=== PATIENT | female | born 1950 | race Caucasian/White ===

== ENCOUNTER 2020-08-08 14:08 | Inpatient (IN) | payer MEDICAID ==
[~2020-08-08] VITALS: Ht 162.6 cm; Wt 94.8 kg
[2020-08-08 19:54] LABS: BASOPHILS % 0.5 % (0.0-2.0); EOSINOPHILS % 0.8 % (0.0-5.0); HEMATOCRIT. 32.8 % (36.0-48.0); HEMOGLOBIN. 11.1 g/dL (12.0-16.0); LYMPHOCYTES % 25.1 % (20.0-50.0); MEAN CORPUSCULAR HEMOGLOBIN 27.8 pg (28.0-32.0); MEAN CORPUSCULAR VOLUME 82.2 fL (81.0-99.0); MEAN PLATELET VOLUME 7.9 fl (7.4-10.4); MONOCYTES % 7.2 % (2.0-8.0); NEUTROPHILS % 66.4 % (40.0-76.0); PLATELET 293 x1000/uL (130-400); RED BLOOD CELL COUNT 3.99 mill/uL (4.2-5.4); RED CELL DISTRIBUTION WIDTH 15.6 % (11.6-14.6)
[2020-08-08 20:00] LABS: CHLORIDE 98 mEq/L (98-107)
[2020-08-08 20:10] LABS: T4 FREE 0.68 ng/dL (0.76-1.46)
[2020-08-08] MEDS ORDERED: CALCIUM GLUCONATE 1,000 MG in DEXTROSE 5% WATER 50 ML IV ONE (21:00)
[2020-08-08] MEDS ORDERED: HYDROCODONE/ACETAMINOPHEN 5/325MG TABLET PO PRN (22:00)
[2020-08-08] MEDS ORDERED: GUAIFENESIN 200MG/10ML SUGAR FREE UDC PO PRN (22:00)
[2020-08-08] MEDS ORDERED: ACETAMINOPHEN 325MG TABLET PO PRN (22:00)
[2020-08-08] MEDS ORDERED: DOCUSATE SODIUM 100MG CAPSULE PO PRN (22:00)
[2020-08-08] MEDS ORDERED: ONDANSETRON HCL 4MG/2ML INJ IV PRN (22:00)
[2020-08-08] MEDS ORDERED: MAGNESIUM/ALUMINUM HYDROXIDE/SIMETHICONE 30ML UDC PO PRN (22:00)
[2020-08-08] MEDS ORDERED: POTASSIUM CHLORIDE 20MEQ TABLET SR PO NR (22:00)
[2020-08-08] MEDS ORDERED: IPRATROPIUM/ALBUTEROL 0.5-3(2.5)MG/3ML NEB NEB PRN (22:00)
[2020-08-08] MEDS ORDERED: CLONIDINE 0.1MG TABLET PO PRN (22:00)
[2020-08-08] MEDS ORDERED: POTASSIUM CHLORIDE 20MEQ TABLET SR PO ONE (22:15)
[2020-08-08] MEDS ORDERED: ENOXAPARIN 40MG/0.4ML SYR SUBCUT SCH (22:30)
[2020-08-09] VITALS (8 sets, daily range): BP systolic 111–152; BP diastolic 55–84
[2020-08-09 01:20] LABS: CHLORIDE 98 mEq/L (98-107)
[2020-08-09 01:26] LABS: PHOSPHORUS 7.5 mg/dL (2.5-4.9)
[2020-08-09 01:29] LABS: CREATINE KINASE 998 IU/L (26-192)
[2020-08-09 01:31] LABS: CREATINE KINASE MB FRACTION 2.6 ng/mL (0.5-3.6)
[2020-08-09] MEDS ORDERED: CALC0.253 PO (02:22)
[2020-08-09] MEDS ORDERED: LEVO125T8 PO (02:22)
[2020-08-09] MEDS ORDERED: GLIP5TAB12 PO (02:22)
[2020-08-09 04:22] LABS: CLARITY URINE CLEAR (CLEAR); COLOR URINE YELLOW (YELLOW); KETONES URINE NEGATIVE (NEGATIVE); LEUKOCYTE ESTERASE URINE NEGATIVE (NEGATIVE); NITRITE URINE NEGATIVE (NEGATIVE); OCCULT BLOOD URINE NEGATIVE (NEGATIVE); PH URINE 6.5 (4.5-8.0); PROTEIN URINE NEGATIVE (NEGATIVE); SPECIFIC GRAVITY URINE 1.008 (1.005-1.030)
[2020-08-09 04:33] LABS: *AMPHETAMINES SCREEN URINE NEGATIVE (NEGATIVE); *BARBITURATES SCREEN URINE NEGATIVE (NEGATIVE); *BENZODIAZEPINES SCREEN URINE NEGATIVE (NEGATIVE); *COCAINE SCREEN URINE NEGATIVE (NEGATIVE)
[2020-08-09 04:34] LABS: CANNABINOID URINE SCREEN NEGATIVE (NEGATIVE); METHADONE URINE SCREEN NEGATIVE (NEGATIVE); OPIATES URINE SCREEN NEGATIVE (NEGATIVE); PHENCYCLIDINE URINE SCREEN NEGATIVE (NEGATIVE)
[2020-08-09 06:29] LABS: BASOPHILS % 0.6 % (0.0-2.0); EOSINOPHILS % 0.5 % (0.0-5.0); HEMATOCRIT. 30.5 % (36.0-48.0); HEMOGLOBIN. 10.4 g/dL (12.0-16.0); LYMPHOCYTES % 22.4 % (20.0-50.0); MEAN CORPUSCULAR HEMOGLOBIN 27.9 pg (28.0-32.0); MEAN CORPUSCULAR VOLUME 81.8 fL (81.0-99.0); MEAN PLATELET VOLUME 8.1 fl (7.4-10.4); MONOCYTES % 6.4 % (2.0-8.0); NEUTROPHILS % 70.1 % (40.0-76.0); PLATELET 295 x1000/uL (130-400); RED BLOOD CELL COUNT 3.73 mill/uL (4.2-5.4); RED CELL DISTRIBUTION WIDTH 15.8 % (11.6-14.6)
[2020-08-09 06:40] LABS: CREATINE KINASE MB FRACTION 2.7 ng/mL (0.5-3.6)
[2020-08-09 13:45] LABS: BG BASE EXCESS 0.3 mmol/L (-2.0-2.0); BG CARBOXYHEMOGLOBIN 0.8 % (0.5-1.5); BG DEOXYHEMOGLOBIN 4.5 % (0.0-5.0); BG FRACTION INSPIRED OXYGEN 21; BG HCO3 ACT 24.7 mmol/L (22.0-26.0); BG METHEMOGLOBIN 0.3 % (0.0-1.5); BG OXYGEN SATURATION 95.4 % (92.0-98.5); BG OXYHEMOGLOBIN 94.4 % (94.0-97.0); BG PCO2 39.2 mmHg (35.0-45.0); BG PH 7.417 (7.350-7.450); BG PO2 82.8 mmHg (75.0-100.0); BG SAMPLE SITE RIGHT BRACHIAL; BG TOTAL HEMOGLOBIN 13.4 g/dL (12.0-18.0); BG VENT MODE ROOM AIR
[2020-08-09] MEDS: CALCITRIOL 0.25MCG CAPSULE PO SCH ×2 (14:28→17:34)
[2020-08-09] MEDS: CALCIUM GLUCONATE 1,000 MG in DEXT 5% WATER 90 ML IV SCH ×2 (14:28→21:02)
[2020-08-09] MEDS: LEVOTHYROXINE SODIUM 125MCG TABLET PO SCH (14:28)
[2020-08-09] MEDS: GLIPIZIDE 5MG TABLET PO SCH (17:34)
[2020-08-09] MEDS: ENOXAPARIN 30MG/0.3ML SYR SUBCUT SCH (21:02)
[2020-08-10 00:23] VITALS: BP 131/77
[2020-08-10 04:00] VITALS: BP 137/81
[2020-08-10 06:34] LABS: BASOPHILS % 0.4 % (0.0-2.0); EOSINOPHILS % 0.4 % (0.0-5.0); HEMATOCRIT. 31.1 % (36.0-48.0); HEMOGLOBIN. 10.5 g/dL (12.0-16.0); LYMPHOCYTES % 20.8 % (20.0-50.0); MEAN CORPUSCULAR HEMOGLOBIN 27.9 pg (28.0-32.0); MEAN CORPUSCULAR VOLUME 82.2 fL (81.0-99.0); MEAN PLATELET VOLUME 8.4 fl (7.4-10.4); NEUTROPHILS % 72.4 % (40.0-76.0); PLATELET 312 x1000/uL (130-400); RED BLOOD CELL COUNT 3.78 mill/uL (4.2-5.4); RED CELL DISTRIBUTION WIDTH 15.6 % (11.6-14.6)
[2020-08-10] MEDS: GLIPIZIDE 5MG TABLET PO SCH ×2 (06:41→17:20)
[2020-08-10] MEDS: LEVOTHYROXINE SODIUM 125MCG TABLET PO SCH (06:41)
[2020-08-10 08:00] VITALS: BP 116/62
[2020-08-10] MEDS ORDERED: LEVOTHYROXINE SODIUM 125MCG TABLET PO SCH (09:00)
[2020-08-10] MEDS: CALCIUM GLUCONATE 1,000 MG in DEXT 5% WATER 90 ML IV SCH (09:33)
[2020-08-10] MEDS: ENOXAPARIN 30MG/0.3ML SYR SUBCUT SCH (09:33)
[2020-08-10] MEDS: CALCITRIOL 0.25MCG CAPSULE PO SCH ×2 (09:46→17:00)
[2020-08-10 10:18] LABS: CHLORIDE 102 mEq/L (98-107)
[2020-08-10 10:29] LABS: PHOSPHORUS 7.7 mg/dL (2.5-4.9)
[2020-08-10 12:00] VITALS: BP 141/76
[2020-08-10 16:00] VITALS: BP 135/69
[2020-08-10 18:00] VITALS: BP 120/70
== END 2020-08-10 20:20 | disposition home or self-care (01) | DRG 425 ==
LOC: ER 14:08 → 6WST 21:35 → ENRESERV 22:49
PROVIDERS: ADMIT Internal Medicine; ATTEND Internal Medicine
DX: E83.51 Hypocalcemia (principal); E44.0 Moderate protein-calorie malnutrition; D64.9 Anemia, unspecified; E78.5 Hyperlipidemia, unspecified; E89.0 Postprocedural hypothyroidism; E11.9 Type 2 diabetes mellitus without complications; E87.6 Hypokalemia; E87.3 Alkalosis; I10 Essential (primary) hypertension; E78.00 Pure hypercholesterolemia, unspecified; Z82.49 Family history of ischemic heart disease and other diseases of the circulatory system; Z68.35 Body mass index [BMI] 35.0-35.9, adult; Z79.890 Hormone replacement therapy
CPT/HCPCS: 36415; 36600; 71045; 80048; 80053; 80061; 80305; 81003; 82306; 82330; 82375; 82550; 82553; 82805; 82962; 83735; 83880; 83970; 84100; 84439; 84443; 84484; 85025; 93005; 99291; J0610; J1650; J7060

== ENCOUNTER 2021-11-19 22:18 | Emergency (ER) | payer MEDICAID ==
[~2021-11-19] VITALS: Ht 165.1 cm; Wt 97.5 kg
[~2021-11-19 22:18] MED LIST: CALC0.253 PO; GLIP5TAB12 PO; LEVO125T8 PO
[2021-11-19] MEDS ORDERED: IOHEXOL-350 100 ML BOTTLE ONE (23:20)
[2021-11-19 23:23] LABS: BASOPHILS % 0.5 % (0.0-2.0); EOSINOPHILS % 0.4 % (0.0-5.0); HEMATOCRIT. 30.3 % (36.0-48.0); HEMOGLOBIN. 10.3 g/dL (12.0-16.0); MEAN CORPUSCULAR HEMOGLOBIN 28.6 pg (28.0-32.0); MEAN CORPUSCULAR VOLUME 84.3 fL (81.0-99.0); MEAN PLATELET VOLUME 7.6 fl (7.4-10.4); MONOCYTES % 5.7 % (2.0-8.0); NEUTROPHILS % 79.4 % (40.0-76.0); PLATELET 259 x1000/uL (130-400); RED CELL DISTRIBUTION WIDTH 14.9 % (11.6-14.6)
[2021-11-19 23:45] LABS: CLARITY URINE CLEAR (CLEAR); COLOR URINE YELLOW (YELLOW); KETONES URINE NEGATIVE (NEGATIVE); LEUKOCYTE ESTERASE URINE NEGATIVE (NEGATIVE); NITRITE URINE NEGATIVE (NEGATIVE); OCCULT BLOOD URINE NEGATIVE (NEGATIVE); PROTEIN URINE NEGATIVE (NEGATIVE); SPECIFIC GRAVITY URINE 1.032 (1.005-1.030)
[2021-11-19 23:54] LABS: *AMPHETAMINES SCREEN URINE NEGATIVE (NEGATIVE); *BENZODIAZEPINES SCREEN URINE NEGATIVE (NEGATIVE); *COCAINE SCREEN URINE NEGATIVE (NEGATIVE); OPIATES URINE SCREEN NEGATIVE (NEGATIVE)
[2021-11-19 23:55] LABS: CANNABINOID URINE SCREEN NEGATIVE (NEGATIVE); PHENCYCLIDINE URINE SCREEN NEGATIVE (NEGATIVE)
[2021-11-20] MEDS ORDERED: CEFTRIAXONE 1 G PREMIX 50 ML IV ONE (01:15)
[2021-11-20] MEDS ORDERED: DEXT 5% IV SCH (01:15)
[2021-11-20] MEDS ORDERED: VANCOMYCIN 1G PREMIX 200 ML IV SCH (01:15)
[2021-11-20] MEDS ORDERED: ACYCLOVIR IV SCH (01:15)
[2021-11-20] MEDS ORDERED: WATER IV SCH (01:15)
[2021-11-20 01:17] VITALS: BP 114/63
[2021-11-20 01:29] LABS: CHLORIDE 93 mEq/L (98-107)
[2021-11-20] MEDS ORDERED: VANCOMYCIN 1GM PMX (XELLIA) 200 ML IV NR (01:30)
[2021-11-20 01:32] LABS: ETHANOL BLOOD < 10 mg/dL
[2021-11-22 08:55] LABS: *BARBITURATES SCREEN URINE NEGATIVE (NEGATIVE)
[2021-11-22 22:45] LABS: METHADONE URINE SCREEN NEGATIVE (NEGATIVE)
== END 2021-11-20 01:47 | disposition short-term general hospital (02) ==
LOC: ER 22:18 → CANBEDREQ 11-20 07:11
DX: R41.82 Altered mental status, unspecified (principal); R53.83 Other fatigue; Z20.822 Contact with and (suspected) exposure to COVID-19; I69.398 Other sequelae of cerebral infarction; R53.1 Weakness; R00.0 Tachycardia, unspecified; E87.1 Hypo-osmolality and hyponatremia; D64.9 Anemia, unspecified; I10 Essential (primary) hypertension; E11.9 Type 2 diabetes mellitus without complications; Z79.84 Long term (current) use of oral hypoglycemic drugs
CPT/HCPCS: 36415; 70450; 70496; 70498; 71045; 80053; 80305; 80320; 81003; 82962; 83605; 84443; 84484; 85025; 87040; 87426; 93005; 99291; J0133; J3370; J7060; Q9967; G0480